=== PATIENT | female | born 2000 | race African-American/Black ===

== ENCOUNTER 2021-01-20 09:00 | Observation (INO) | payer MEDICAID ==
[~2021-01-20] VITALS: Ht 160 cm; Wt 79.4 kg
[2021-01-20 10:21] LABS: Basophils # (auto) 0 10 ^3/uL (0-0.2); Basophils % (auto) 0.3 % (0.0-2.0); Eosinophils # (auto) 0.1 10 ^3/uL (0-0.8); Eosinophils % (auto) 1.1 % (0.0-7.0); Hemoglobin 11.9 g/dL (12.2-16.2); Lymphocytes # (auto) 2.2 10 ^3/uL (0.4-5.4); Lymphocytes % (auto) 17.7 % (10.0-50.0); Mean Corpuscular Volume 91.4 fL (80.0-100.0); Monocytes # (auto) 1.2 10 ^3/uL (0-1.3); Monocytes % (auto) 9.3 % (0.0-12.0); Neutrophils % (auto) 71.6 % (37.0-80.0); Red Blood Cells 3.83 10^6/uL (4.0-5.20); Red Cell Distribution Width 14.7 % (11.8-14.3); White Blood Cell 12.6 10^3/uL (4.4-10.8)
[2021-01-20 10:40] LABS: Urine Bacteria FEW /hpf (None Seen); Urine Blood Negative /uL (Negative); Urine Mucus FEW (None Seen); Urine Specific Gravity 1.011 (1.001-1.035); Urine WBC 4 /hpf (0 - 5)
[2021-01-20 10:43] LABS: Albumin 2.6 g/dL (3.4-5.0); Calcium 8.8 mg/dL (8.5-10.1); Potassium 3.8 mmol/L (3.5-5.1)
[2021-01-20 10:48] LABS: BUN/Creatinine Ratio 10.4; Bilirubin, Total 0.4 mg/dL (0.2-1.0); Total Protein 6.8 g/dL (6.4-8.2); Uric Acid 4.5 mg/dL (2.6-6.0)
[2021-01-20 10:52] LABS: INR 0.96 (0.9-1.15); Partial Thromboplastin Time 25.5 sec (23.6-33.0)
[2021-01-20 10:58] LABS: Alcohol, Urine < 3.0 mg/dL (0-10); Amphetamine Screen, Urine NEGATIVE (NEGATIVE); Barbiturate Scree,Urine NEGATIVE (NEGATIVE); Benzodiazephine Screen, Urine NEGATIVE (NEGATIVE); Cannabinoid Screen, Urine NEGATIVE (NEGATIVE); Cocaine Screen, Urine NEGATIVE (NEGATIVE); Opiate Scree,Urine NEGATIVE (NEGATIVE); Phencyclidine Screen, Urine NEGATIVE (NEGATIVE)
[2021-01-21 05:06] LABS: Rubella Antibodies, IgG 1.18 index (Immune >0.99)
[2021-01-21 06:06] LABS: RPR Non Reactive (Non Reactive)
== END 2021-01-20 12:48 | disposition home or self-care (01) ==
LOC: LDRP 09:00
PROVIDERS: ADMIT Obstetrics & Gynecology; ATTEND Obstetrics & Gynecology
DX: O36.8130 Decreased fetal movements, third trimester, not applicable or unspecified (principal); Z3A.37 37 weeks gestation of pregnancy; Z79.899 Other long term (current) drug therapy; Z98.890 Other specified postprocedural states
CPT/HCPCS: 36415; 59025; 76805; 80053; 80307; 81001; 81002; 84550; 85025; 85384; 85610; 85730; 86592; 86703; 86762; 86850; 86900; 86901; 87340; 94760; G0378; G0379

== ENCOUNTER 2021-01-23 09:51 | Observation (INO) | payer MEDICAID | END 2021-01-23 11:24 | disposition home or self-care (01) | LOC: LDRP 09:51 | PROVIDERS: ADMIT Obstetrics & Gynecology; ATTEND Obstetrics & Gynecology | DX: O99.891 Other specified diseases and conditions complicating pregnancy (principal); M79.89 Other specified soft tissue disorders; Z87.891 Personal history of nicotine dependence; Z3A.39 39 weeks gestation of pregnancy | CPT/HCPCS: 59025; 81002; 94760; G0378 ==

== ENCOUNTER 2021-02-01 20:19 | Observation (INO) | payer MEDICAID ==
[~2021-02-01] VITALS: Ht 157.5 cm; Wt 81.2 kg
== END 2021-02-01 23:07 | disposition home or self-care (01) ==
LOC: LDRP 20:19
PROVIDERS: ADMIT Obstetrics & Gynecology; ATTEND Obstetrics & Gynecology
DX: O62.9 Abnormality of forces of labor, unspecified (principal); Z3A.38 38 weeks gestation of pregnancy
CPT/HCPCS: 59025; 76818; 81002; 94760; G0378; G0379

== ENCOUNTER 2021-02-03 06:35 | Inpatient (IN) | payer MEDICAID ==
[~2021-02-03] VITALS: Ht 157.5 cm; Wt 81.2 kg
[2021-02-03] VITALS (12 sets, daily range): BP systolic 105–136; BP diastolic 47–94
[2021-02-03] MEDS ORDERED: DERMOPLAST 60ML BOTTLE TOP PRN (07:00)
[2021-02-03] MEDS ORDERED: miSOPROStol 50 MCG per PRE-CUT 1/2 TAB PO PRN (07:00)
[2021-02-03] MEDS ORDERED: WITCH HAZEL-GLYCERIN PAD TOP PRN (07:00)
[2021-02-03] MEDS ORDERED: PENICILLIN G POT 5MIL/D5 50ML 50 ML IV ONE (07:00)
[2021-02-03] MEDS ORDERED: BUTORPHANOL TARTRATE 2 MG/1 ML VIAL IV PRN ×2 (07:00)
[2021-02-03] MEDS ORDERED: PHISODERM TOP SOLN 240ML BTL TOP PRN (07:00)
[2021-02-03] MEDS ORDERED: LIDOCAINE 2%HCL (LOCAL ANESTH.) INJ 20ML MDV IJ PRN (07:00)
[2021-02-03] MEDS ORDERED: PROMETHAZINE HCL 25 MG/ML 1ML IV PRN (07:00)
[2021-02-03 07:58] LABS: Urine Bacteria FEW /hpf (None Seen); Urine Blood Negative /uL (Negative); Urine Mucus FEW (None Seen); Urine Specific Gravity 1.011 (1.001-1.035); Urine WBC 5 /hpf (0 - 5)
[2021-02-03 07:59] LABS: Basophils # (auto) 0 10 ^3/uL (0-0.2); Basophils % (auto) 0.2 % (0.0-2.0); Eosinophils # (auto) 0.1 10 ^3/uL (0-0.8); Eosinophils % (auto) 0.9 % (0.0-7.0); Hematocrit 36.9 % (36.0-46.0); Hemoglobin 12.2 g/dL (12.2-16.2); Lymphocytes % (auto) 16.3 % (10.0-50.0); Mean Corpuscular Hemoglobin 30.2 pg (28.0-32.0); Mean Corpuscular Hgb Conc. 33.1 g/dL (32.0-36.0); Mean Corpuscular Volume 91.3 fL (80.0-100.0); Monocytes # (auto) 1.1 10 ^3/uL (0-1.3); Monocytes % (auto) 9.4 % (0.0-12.0); Neutrophils # (auto) 8.8 10 ^3/uL (1.6-8.6); Neutrophils % (auto) 73.2 % (37.0-80.0); Nucleated Red Blood Cells % 0.1 %; Red Blood Cells 4.05 10^6/uL (4.0-5.20); Red Cell Distribution Width 16.1 % (11.8-14.3)
[2021-02-03 08:05] LABS: Amphetamine Screen, Urine NEGATIVE (NEGATIVE); Barbiturate Scree,Urine NEGATIVE (NEGATIVE); Benzodiazephine Screen, Urine NEGATIVE (NEGATIVE); Cannabinoid Screen, Urine NEGATIVE (NEGATIVE); Cocaine Screen, Urine NEGATIVE (NEGATIVE); Opiate Scree,Urine NEGATIVE (NEGATIVE); Phencyclidine Screen, Urine NEGATIVE (NEGATIVE)
[2021-02-03] MEDS: LACTATED RINGER'S 1,000 ML IV SCH ×3 (08:05→23:00)
[2021-02-03 08:15] LABS: INR 0.94 (0.9-1.15); Partial Thromboplastin Time 25.9 sec (23.6-33.0)
[2021-02-03 08:40] LABS: Calcium 8.9 mg/dL (8.5-10.1); Potassium 3.7 mmol/L (3.5-5.1)
[2021-02-03 08:46] LABS: Albumin 2.6 g/dL (3.4-5.0); BUN/Creatinine Ratio 8.6; Bilirubin, Total 0.4 mg/dL (0.2-1.0); Total Protein 6.9 g/dL (6.4-8.2)
[2021-02-03] MEDS ORDERED: LACTATED RINGER'S 1,000 ML IV ONE ×2 (10:00→11:00)
[2021-02-03] MEDS ORDERED: LIDOCAINE HCL 2 %PF INJ 10ML AMP IJ ONE ×2 (10:00→11:00)
[2021-02-03] MEDS ORDERED: NALOXONE HCL 0.4 MG/ML VIAL IV ONE ×2 (10:00→11:00)
[2021-02-03] MEDS ORDERED: ROPIVACAINE HCL 200 ML EPI SCH ×3 (10:00→11:00)
[2021-02-03] MEDS ORDERED: fentaNYL CITRATE 100 MCG/2 ML VL IV ONE ×2 (10:00→11:00)
[2021-02-03] MEDS ORDERED: ePHEDrine SULFATE 50 MG/ML AMP IV ONE ×2 (10:00→11:00)
[2021-02-03] MEDS ORDERED: PENICILLIN G POTASSIUM 2,500,000 UNITS in D5W 5% 50 ML IV SCH (11:00)
[2021-02-03] MEDS ORDERED: FAMOTIDINE (10MG/ML) 2ML VL IV ONE (13:01)
[2021-02-03] MEDS ORDERED: KETOROLAC TROMETH 30 MG/ML 1ML VIAL ONE (13:03)
[2021-02-03] MEDS ORDERED: oxyTOCIN 10 UNIT/ML 10ML VIAL ONE (13:03)
[2021-02-03] MEDS ORDERED: GLYCOPYRROLATE 0.2 MG/ML 1ML VIAL ONE (13:03)
[2021-02-03] MEDS ORDERED: ONDANSETRON HCL 4 MG/2 ML VIAL ONE (13:03)
[2021-02-03] MEDS ORDERED: ePHEDrine SULFATE 50 MG/ML AMP ONE (13:03)
[2021-02-03] MEDS ORDERED: PHENYLEPHRINE HCL 10 MG/ML VL ONE (13:03)
[2021-02-03] MEDS ORDERED: ceFAZolin 1GM/50ML 50 ML IV ONE (13:08)
[2021-02-03] MEDS ORDERED: MORPHINE SULF PF 2 MG/2 ML SYRG ONE (13:11)
[2021-02-03] MEDS ORDERED: fentaNYL CITRATE 100 MCG/2 ML VL ONE (13:12)
[2021-02-03] MEDS ORDERED: MEPERIDINE HCL (25 MG/ML) 1ML VIAL ONE (13:56)
[2021-02-03] MEDS ORDERED: MORPHINE SULFATE 4 MG/ML SYR/VIAL IV PRN (14:15)
[2021-02-03] MEDS ORDERED: KETOROLAC TROMETH 30 MG/ML 1ML VIAL IV PRN ×2 (14:15→14:45)
[2021-02-03] MEDS ORDERED: ONDANSETRON HCL 4 MG/2 ML VIAL IV PRN ×3 (14:15→14:45)
[2021-02-03] MEDS ORDERED: HYDROmorphone HCL 2 MG/ML VL ONE (14:44)
[2021-02-03] MEDS ORDERED: NALOXONE HCL 0.4 MG/ML VIAL IV PRN (14:45)
[2021-02-03] MEDS ORDERED: DexAMETHasone SOD PHOS 10MG/1ML VIAL INJ IV PRN (14:45)
[2021-02-03] MEDS ORDERED: diphenhdrAMINE HCL 50 MG/1 ML VL IV PRN (14:45)
[2021-02-03] MEDS ORDERED: HYDROmorphone HCL 2 MG/ML VL IV ONE (15:30)
[2021-02-03] MEDS ORDERED: ceFAZolin 2 GM in D5W 5% 100 ML IV ONE ×2 (17:00→21:00)
[2021-02-04] VITALS (19 sets, daily range): BP systolic 104–135; BP diastolic 37–77
[2021-02-04] MEDS: LACTATED RINGER'S 1,000 ML IV SCH ×2 (03:29→17:50)
[2021-02-04 06:55] LABS: Basophils # (auto) 0 10 ^3/uL (0-0.2); Basophils % (auto) 0.2 % (0.0-2.0); Eosinophils # (auto) 0.1 10 ^3/uL (0-0.8); Eosinophils % (auto) 0.4 % (0.0-7.0); Hemoglobin 10.4 g/dL (12.2-16.2); Lymphocytes # (auto) 1.3 10 ^3/uL (0.4-5.4); Lymphocytes % (auto) 9.6 % (10.0-50.0); Mean Corpuscular Hemoglobin 31.9 pg (28.0-32.0); Mean Corpuscular Hgb Conc. 34.8 g/dL (32.0-36.0); Mean Corpuscular Volume 91.6 fL (80.0-100.0); Monocytes # (auto) 1.3 10 ^3/uL (0-1.3); Monocytes % (auto) 9.5 % (0.0-12.0); Neutrophils # (auto) 11.1 10 ^3/uL (1.6-8.6); Neutrophils % (auto) 80.3 % (37.0-80.0); Red Blood Cells 3.28 10^6/uL (4.0-5.20); Red Cell Distribution Width 15.7 % (11.8-14.3); White Blood Cell 13.9 10^3/uL (4.4-10.8)
[2021-02-04 07:06] LABS: RPR Non Reactive (Non Reactive); Rubella Antibodies, IgG 1.29 index (Immune >0.99)
[2021-02-04] MEDS ORDERED: BISACODYL 10 MG RECT SUPP PR PRN (07:30)
[2021-02-04] MEDS ORDERED: HYDROcodone-ACET 5/325MG TAB PO PRN (07:30)
[2021-02-04] MEDS: DOCUSATE SOD 100 MG CAP PO SCH ×2 (11:28→22:29)
[2021-02-04] MEDS: HYDROcodone-ACET 5/325MG TAB PO PRN ×3 (11:28→22:29)
[2021-02-04] MEDS: DOCUSATE CALCIUM 240 MG CAP PO SCH (11:28)
[2021-02-04] MEDS: SIMETHICONE 80 MG CHEWABLE TABLET PO SCH ×3 (11:30→22:29)
[2021-02-04] MEDS: IBUPROFEN 800 MG TAB PO PRN (14:44)
[2021-02-05] MEDS: IBUPROFEN 800 MG TAB PO PRN ×2 (03:17→14:28)
[2021-02-05 03:25] VITALS: BP 131/71
[2021-02-05 07:00] VITALS: BP 127/64
[2021-02-05] MEDS: SIMETHICONE 80 MG CHEWABLE TABLET PO SCH ×4 (07:18→22:02)
[2021-02-05 11:00] VITALS: BP 149/76
[2021-02-05] MEDS: DOCUSATE CALCIUM 240 MG CAP PO SCH (11:11)
[2021-02-05] MEDS: DOCUSATE SOD 100 MG CAP PO SCH ×2 (11:11→22:02)
[2021-02-05 15:03] VITALS: BP 127/69
[2021-02-05] MEDS ORDERED: HYDR-4902 PO (15:59)
[2021-02-05] MEDS ORDERED: IBUP600T27 PO (16:00)
[2021-02-05] MEDS ORDERED: DOCU-94 PO (16:00)
[2021-02-05] MEDS ORDERED: PREN-96 PO (16:01)
[2021-02-05 18:40] VITALS: BP 118/72
[2021-02-05 23:28] VITALS: BP 127/80
[2021-02-06 03:00] VITALS: BP 130/63
[2021-02-06] MEDS: SIMETHICONE 80 MG CHEWABLE TABLET PO SCH ×2 (05:48→12:00)
[2021-02-06 07:10] VITALS: BP 143/66
[2021-02-06] MEDS: IBUPROFEN 800 MG TAB PO PRN (09:50)
[2021-02-06] MEDS: DOCUSATE CALCIUM 240 MG CAP PO SCH (09:50)
[2021-02-06] MEDS: DOCUSATE SOD 100 MG CAP PO SCH (09:51)
[2021-02-06 11:15] VITALS: BP 125/50
== END 2021-02-06 11:00 | disposition home or self-care (01) | DRG 540 ==
LOC: UNDOADMOB 06:35 → LDRP 06:35 → OBSVTOIN 06:50 → INTOOBSV 06:50 → LDRP 07:01 → OBSVTOIN 07:01 → LDRP 08:15 → UNDODISIN 02-06 11:00
PROVIDERS: ADMIT Obstetrics & Gynecology; ATTEND Obstetrics & Gynecology
PROC: 10D00Z1 Extraction of Products of Conception, Low, Open Approach (ICD-10-PCS; principal; 2021-02-03 13:18)
DX: O76 Abnormality in fetal heart rate and rhythm complicating labor and delivery (principal); F32.9 Major depressive disorder, single episode, unspecified; J45.909 Unspecified asthma, uncomplicated; O99.52 Diseases of the respiratory system complicating childbirth; Z20.822 Contact with and (suspected) exposure to COVID-19; O99.344 Other mental disorders complicating childbirth; O77.0 Labor and delivery complicated by meconium in amniotic fluid; Z3A.39 39 weeks gestation of pregnancy; Z37.0 Single live birth
CPT/HCPCS: 36415; 59025; 62282; 76805; 80053; 80307; 81001; 85025; 85610; 85730; 86592; 86703; 86762; 86850; 86900; 86901; 87340; 87426; 94760; 94762; 96360; 96361; 96365; 96366; 96374; G0378; J0690; J1885; J2405; J2540; J2590; J3490; J7060

== ENCOUNTER 2022-05-25 13:44 | Emergency (ER) | payer MEDICAID ==
[~2022-05-25] VITALS: Ht 154.9 cm; Wt 54.7 kg
[~2022-05-25 13:44] MED LIST: DOCU-94 PO; HYDR-4902 PO; IBUP600T27 PO; PREN-96 PO
[2022-05-25] MEDS ORDERED: ACETAMINOPHEN 500 MG TAB PO ONE (14:15)
[2022-05-25 15:58] VITALS: BP 108/52
[2022-05-25] MEDS ORDERED: ACET1CAP14 PO (16:50)
[2022-05-25] MEDS ORDERED: AZITTAB PO (16:50)
== END 2022-05-25 17:00 | disposition home or self-care (01) ==
LOC: ER 13:44
DX: J06.9 Acute upper respiratory infection, unspecified (principal); J45.909 Unspecified asthma, uncomplicated; Z20.822 Contact with and (suspected) exposure to COVID-19
CPT/HCPCS: 36415; 87426; 87804